=== PATIENT | female | born 1990 | race Caucasian/White ===

== ENCOUNTER → 2018-10-21 | Outpatient (CLI) | payer BC | LOC: ZCOL.LAB 16:30 | DX: L02.215 Cutaneous abscess of perineum (principal) ==

== ENCOUNTER 2023-02-22 09:37 | Inpatient (IN) | payer OTHER ==
[2023-02-22] VITALS (14 sets, daily range): BP systolic 111–158; BP diastolic 69–88; PULSE 81–105; TEMP 97.9
[~2023-02-22] VITALS: Ht 160 cm; Wt 73.6 kg
--- NOTE | 2023-02-22 19:00 | NUR ---
PT AMBULATES TO LR6 WITH SPOUSE AT SIDE. PT STATES THEY RECENTLY WERE IN DECEMBER, BUT DID NOT DO THE PAPERWORK WITH THE HOSPITAL TO CHANGE HER LAST NAME FOR THIS ADMISSION. PT DENIES LOF/VB. STATES SHE HAS HAD SOME CONTRACTIONS SHE BELIEVED TO BE VANESSA MELO. THE PATIENT USES THE BATHROOM, CHANGES INTO A CLEAN GOWN AND IS PLACED ON EFM. FHR CATEGORY 1 TRACING WITH UTERINE IRRITIABILTY. IV START TO THE RIGHT HAND. IVF BOLUS OF 200ML.
--- NOTE | 2023-02-22 19:50 | NUR ---
AT BEDSIDE TO PLACE NOVAK BALLOON. 1957: PROCEDURE PREPPED AND STARTS PER . 1999: NOVAK BALLOON INSERTION AT THIS TIME AND 20ML NS PLACED INTO UTERINE BALLOON. 20ML THEN PLACED INTO THE VAGINAL BALLOON. 20ML WAS THEN PLACED IN UTERINE AND VAGINAL BALLOONS ALTERNATING UNTIL REACHING 80ML IN EACH BALLOON. THE PROCEDURE WAS COMPLETED AT 2005 WITH TENSION PLACED ON THE NOVAK BALLOON AND TAPED TO THE LEFT THIGH OF THE PATIENT. THE PATIENT TOLERATED THE PROCEDURE VERY WELL. NO CONCERNS REGARDING THE PATIENT AT THE PRESENT TIME.
[2023-02-22 21:02] LABS: BASO # 0.1 K/mm3 (0.0-0.2); BASO % 0.5 % (0.0-2.0); EOS # 0.1 K/mm3 (0.0-0.7); EOS % 0.9 % (0.0-4.0); GRAN # 10.1 K/mm3 (1.4-6.5); GRAN % 73.7 % (42.2-75.2); HEMATOCRIT 39.5 % (37.0-47.0); HEMOGLOBIN 13.4 g/dl (12.5-16.0); LYMPH # 2.3 K/mm3 (1.2-3.4); LYMPH % 16.4 % (20.0-51.0); MEAN CELL VOLUME 91 fl (80.0-100.0); MEAN CORPUSCULAR HEMOGLOBIN 31 pg (27-31); MEAN CORPUSCULAR HGB CONC 34 g/dl (33.0-37.0); MEAN PLATELET VOLUME 10.8 fl (7.4-10.4); MONO % 7.6 % (1.7-9.3); PLATELET COUNT 277 K/mm3 (130-400); RED BLOOD COUNT 4.36 M/mm3 (4.10-5.30); REDCELL DISTRIBUTION WIDTH-CV 13.6 % (11.5-14.5)
[2023-02-22 21:18] LABS: ALBUMIN 3.1 gm/dL (3.5-5.0); CALCIUM 9.5 mg/dL (8.4-10.2); CREATININE, serum 0.62 mg/dL (0.57-1.11); POTASSIUM 3.6 mmol/L (3.5-4.5); TOTAL PROTEIN 6.7 gm/dL (6.2-8.1)
[2023-02-23] VITALS (65 sets, daily range): BP systolic 101–148; BP diastolic 56–94; PULSE 73–130; TEMP 97.4–98.3
--- NOTE | 2023-02-23 02:57 | NUR ---
PT UP TO THE BATHROOM, PT CALLS OUT TO LET US KNOW THAT HER NOVAK BALLOON CAME OUT. THIS RN AT BEDSIDE. SVE /-3. NO OTHER CONCERNS REGARDING THE PATIENT AT PRESENT TIME.
--- NOTE | 2023-02-23 09:08 | NUR ---
PT SITTING UP ON THE SIDE OF THE BED FOR EPIDURAL PLACEMENT. LR BOLUS INFUSING PER PROTOCOL.MATERNAL VITAL SIGNS STABLE.EFM AND TOCO TRACING CATEGORY 1 . 0843 TEST DOSE ADMINISTERED PER JERONIMO LUNA.PT TOLERATED PROCEDURE WELL.
--- NOTE | 2023-02-23 09:38 | NUR ---
DR AGUDELO BEDSIDE.SVE /-3.AROM PERFORMED WITH CLEAR FLUID RETURNED.PT TOELRATED PROCEDURE WELL.MATERNAL VITAL SIGNS STABLE.EFM AND TOCO TRACING CATEGORY 1.
--- NOTE | 2023-02-23 17:02 | NUR ---
1330 THIS RN CALLED THE PT COMPLETE.PHYSICIAN NOTIFED OF THE PT STATUS.BEGINS PRACTICE PUSHING WITH GOOD MATERNAL EFFORT.ALL APPROPRIATE STAFF NOTIFED. 1520 DR AGUDELO REVIEWED EDUCATION ABOUT VACUUM DELIVERY DUE TO MATERNAL EXHAUSTION.PT VERBALIZES UNDERSTANDING. [address] AGUDELO. 1527 VACUUM EXTRACTION OF VIABLE FEMALE INFANT.STRONG CRY NOTED AT DELIVERY. PLACED ON MATERNAL ABDOMEN.CORD CLAMPED AND CUT BY FATHER OF THE BABY. CARES ASSUMED BY ISAÍAS MCKINLEY RN. 1538 OF INTACT PLACENTA. PITOCIN BOLUS INFUSING PER PROTOCOL.2ND DEGREE LACERATION REPAIRED BY DR AGUDELO.FUNDUS FIRM AT THE UMBILICUS WITH MASSAGE.LOCHIA WITHIN NORMAL LIMITS.MATERNAL VITAL SIGNS STABLE.
--- NOTE | 2023-02-23 20:32 | NUR ---
Pt up ambulating in hallway with spouse and infant in crib.
[2023-02-24 00:10] VITALS: BP 132/79; PULSE 94; TEMP 98.4
[2023-02-24 04:36] LABS: HEMOGLOBIN 10.2 g/dl (12.5-16.0)
[2023-02-24 08:10] VITALS: BP 122/78; PULSE 89; TEMP 97.9
--- NOTE | 2023-02-24 09:46 | NUR ---
Initial visit attempt; Physician with patient. Card Placer left card offering congratulations and God's blessings for the of their daughter along with the offering of Spiritual Care.
[2023-02-24 17:25] VITALS: BP 110/23; PULSE 84; TEMP 98.1
[2023-02-24 19:39] VITALS: BP 130/82; PULSE 77; TEMP 97.9
[2023-02-25 03:30] VITALS: BP 112/78; PULSE 72; TEMP 98
[2023-02-25 07:00] VITALS: BP 123/72; PULSE 79; TEMP 98.4
--- NOTE | 2023-02-25 14:30 | NUR ---
DISCHARGE TEACHING COMPLETED. EDUCATED ON 6 WEEK FOLLOW UP APPOINTMENT. QUESTIONS INVITED AND ANSWERED.
== END 2023-02-25 14:54 | disposition home or self-care (01) | DRG 807 ==
LOC: OB 09:37 → LDR 19:03 → OB 02-23 18:00
PROVIDERS: ADMIT Obstetrics & Gynecology
PROC: 10D07Z6 Extraction of Products of Conception, Vacuum, Via Natural or Artificial Opening (ICD-10-PCS; principal; 2023-02-23)
PROC: 0KQM0ZZ Repair Perineum Muscle, Open Approach (ICD-10-PCS; 2023-02-23)
PROC: 3E033VJ Introduction of Other Hormone into Peripheral Vein, Percutaneous Approach (ICD-10-PCS; 2023-02-23)
PROC: 10907ZC Drainage of Amniotic Fluid, Therapeutic from Products of Conception, Via Natural or Artificial Opening (ICD-10-PCS; 2023-02-23)
PROC: 0W8NXZZ Division of Female Perineum, External Approach (ICD-10-PCS; 2023-02-23)
DX: O14.04 Mild to moderate pre-eclampsia, complicating childbirth (principal); Z37.0 Single live birth; Z3A.38 38 weeks gestation of pregnancy; O99.344 Other mental disorders complicating childbirth; F41.9 Anxiety disorder, unspecified; O13.4 Gestational [pregnancy-induced] hypertension without significant proteinuria, complicating childbirth; O99.824 Streptococcus B carrier state complicating childbirth; O76 Abnormality in fetal heart rate and rhythm complicating labor and delivery; O77.0 Labor and delivery complicated by meconium in amniotic fluid; O75.81 Maternal exhaustion complicating labor and delivery; O70.1 Second degree perineal laceration during delivery; Z14.1 Cystic fibrosis carrier
CPT/HCPCS: J2540; J2590; J2795; J7120